=== PATIENT | male | born 1970 | race Caucasian/White ===

== ENCOUNTER 2021-07-21 19:33 | Emergency (ER) | payer SELFPAY ==
[~2021-07-21] VITALS: Ht 177.8 cm; Wt 95.0 kg
[2021-07-21 19:37] VITALS: BP 138/92
[2021-07-21 20:04] LABS: BASOPHILS % 0.2 % (0.0-2.0); EOSINOPHILS % 0.1 % (0.0-5.0); HEMATOCRIT. 43.1 % (42.0-52.0); HEMOGLOBIN. 14.5 g/dL (14.0-18.0); LYMPHOCYTES % 10.4 % (20.0-50.0); MEAN CORPUSCULAR HEMOGLOBIN 29.3 pg (28.0-32.0); MEAN CORPUSCULAR VOLUME 87.2 fL (80.0-94.0); MEAN PLATELET VOLUME 9.1 fl (7.4-10.4); MONOCYTES % 6.9 % (2.0-8.0); NEUTROPHILS % 82.4 % (40.0-76.0); PLATELET 213 x1000/uL (130-400); RED BLOOD CELL COUNT 4.94 mill/uL (4.7-6.1); RED CELL DISTRIBUTION WIDTH 14.1 % (11.6-14.6)
[2021-07-21 20:12] LABS: CHLORIDE 112 mEq/L (98-107)
[2021-07-21 20:16] LABS: ETHANOL BLOOD < 10 mg/dL
== END 2021-07-21 21:06 | disposition left against medical advice (07) ==
LOC: ER 19:33
DX: Z53.21 Procedure and treatment not carried out due to patient leaving prior to being seen by health care provider (principal)
CPT/HCPCS: 36415; 80053; 80307; 80320; 80329; 85025; 99283; G0480

== ENCOUNTER 2021-07-22 05:27 | Emergency (ER) | payer SELFPAY ==
[~2021-07-22] VITALS: Ht 172.7 cm; Wt 75.0 kg
[2021-07-22] MEDS ORDERED: LEVETIRACETAM 1000MG PREMIX 100 ML IV ONE (05:45)
[2021-07-22 06:13] LABS: BASOPHILS % 0.5 % (0.0-2.0); EOSINOPHILS % 0.6 % (0.0-5.0); HEMATOCRIT. 41.5 % (42.0-52.0); HEMOGLOBIN. 14.4 g/dL (14.0-18.0); LYMPHOCYTES % 16.4 % (20.0-50.0); MEAN CORPUSCULAR HEMOGLOBIN 30.2 pg (28.0-32.0); MONOCYTES % 10.9 % (2.0-8.0); NEUTROPHILS % 71.6 % (40.0-76.0); PLATELET 209 x1000/uL (130-400); RED BLOOD CELL COUNT 4.78 mill/uL (4.7-6.1); RED CELL DISTRIBUTION WIDTH 13.7 % (11.6-14.6)
[2021-07-22 06:29] LABS: CHLORIDE 110 mEq/L (98-107)
[2021-07-22 06:33] LABS: ETHANOL BLOOD < 10 mg/dL
[2021-07-22] MEDS ORDERED: LORAZEPAM 0.5MG TABLET PO ONE (07:00)
[2021-07-22 07:43] VITALS: BP 136/62
== END 2021-07-22 07:45 | disposition left against medical advice (07) ==
LOC: ER 05:27
DX: G40.909 Epilepsy, unspecified, not intractable, without status epilepticus (principal); F31.9 Bipolar disorder, unspecified; F10.21 Alcohol dependence, in remission
CPT/HCPCS: 36415; 80053; 80307; 80320; 80329; 85025; 99283; G0480